=== PATIENT | female | born 1960 | race American Indian/Alaskan Native ===

== ENCOUNTER 2019-07-29 12:26 | Emergency (ER) | payer OTHER ==
--- NOTE | 2019-07-29 14:30 | Event Note ---
ED Screening Note ED Screening Note: frontal headache this morning states that she took an advil and the headache went away states that it was throbbing sensation she went to the firestation and had an elevated blood pressure reading she does not remember what it was no n/v/d no vision changes no numbness no weakness no CP no SOB no urinary retention PMHx hypothyroid no allergies to meds states she has had a couple of episodes of high blood pressure in the past, has never been on meds for it
--- NOTE | 2019-07-29 14:36 | Emergency Department Report ---
Chief Complaint: High BP Stated Complaint: HBP Time Seen by Provider: 07/29/19 14:27 - HPI History of Present Illness: pt is a 59 yo female who presents with a frontal headache this morning states that she took an advil and the headache went away shortly after states that it was throbbing sensation she went to the firestation and had an elevated blood pressure reading she does not remember what it was no n/v/d no vision changes no numbness no weakness no CP no SOB no urinary retention PMHx hypothyroid no allergies to meds states she has had a couple of episodes of high blood pressure in the past, has never been on meds for it Vitals are stable Blood pressure is 150/88 Mild elevation in blood pressure Patient is currently completely asymptomatic on exam: Non toxic appearing, no acute distress atraumatic, normocephalic normal appearance of the eyes, PERRL, EOMI, no periorbital edema or ecchymosis moist mucus membranes regular heart rate and rhythm, no gallops, no rubs, no murmurs breath sounds are clear bilaterally, no w/r/r A&O x4, no focal neuro deficit, 5/5 strength in the BLE/BUE, sensation intact throughout, no pronator drift, no facial asymmetry, normal finger to nose, normal heel to mckeon skin is warm, dry, intact advised pt to please keep a blood pressure log and take your blood pressure three times a day. eat a low sodium diet. increase your water intake. incorporate daily exercise. follow up with a primary care doctor for reexaminati on. return to the emergency room immediately for any new or worsening symptoms including but not limited to numbness, facial droop, weakness, vision changes, worsening headache, chest pain, shortness of breath, etc Patient is presenting with him a nonmedical emergency at this time, screen examination performed and there is no threat to life or limb at this time Mild elevation in blood pressure She has no symptoms at all Patient will be referred to a primary care physician for blood pressure rechecks Discussed strict return precautions with patient MSE screening note: Focused history and physical exam performed. ED Disposition for MSE Clinical Impression: Elevated blood pressure reading Disposition: Z- MED SCREENING EXAM-LEFT Is pt being admited?: No Does the pt Need Aspirin: No Condition: Stable Additional Instructions: please keep a blood pressure log and take your blood pressure three times a day. eat a low sodium diet. increase your water intake. incorporate daily exercise. follow up with a primary care doctor for reexamination. return to the emergency room immediately for any new or worsening symptoms including but not limited to numbness, facial droop, weakness, vision changes, worsening headache, chest pain, shortness of breath, etc Referrals: your, primary care doctor [Other] - 2-3 Days Time of Disposition: 14:36 Print Language: JORDANIAN
[2019-07-29 14:45] VITALS: BP 150/88
== END 2019-07-29 14:45 | disposition left against medical advice (07) ==
LOC: ED 12:26
DX: R03.0 Elevated blood-pressure reading, without diagnosis of hypertension (principal); E03.9 Hypothyroidism, unspecified
CPT/HCPCS: 99281